=== PATIENT | female | born 1940 | race Caucasian/White ===

== ENCOUNTER → 2016-05-09 | Outpatient (CLI) | payer OTHER ==
[~2016-05-09] MED LIST: ATEN50TA41 PO; DILT240C80 PO; FENO54TA17 PO; GLIP5TAB22 PO; LEVO75TA5 PO; LISI-170 PO; METO25TA35 PO; OMNIPAQUE 350 MG/ML, 150 ML BOTTLE ONE; SIMV10TA3 PO
== END | disposition home or self-care (01) ==
LOC: CFH 13:09
PROVIDERS: ATTEND Urology
DX: N28.1 Cyst of kidney, acquired (principal); K76.89 Other specified diseases of liver; M51.36 Other intervertebral disc degeneration, lumbar region; Z87.442 Personal history of urinary calculi
CPT/HCPCS: 74178; Q9967